=== PATIENT | male | born 1990 | race Caucasian/White ===

== ENCOUNTER 2019-04-06 07:24 | Emergency (ER) | payer MEDICAID ==
--- NOTE | 2019-04-06 08:03 | EDM.PDOC ---
ED HPI GENERAL MEDICAL PROBLEM - General Chief Complaint: Gastrointestinal Problem Stated Complaint: VOMITING SYNDROME Time Seen by Provider: 04/06/19 07:58 - History of Present Illness INITIAL COMMENTS - FREE TEXT/NARRATIVE: Patient has history of cyclic vomiting syndrome since age 12. Yesterday, day, he had a panic attack and his vomiting series began. He estimates he has vomited 15 times but it's mostly acid that comes up. He generally has responded well to IV fluids and antiemetics as well as something for anxiety. No fever or chills. No diarrhea. No abdominal pain. No urinary symptoms. Abdomen Pain Score (Numeric/FACES): 8 - Related Data Allergies Allergy/AdvReac Type Severity Reaction Status Date / Time No Known Allergies Allergy Verified 04/06/19 07:42 Home Meds: Home Meds QUEtiapine Fumarate [Quetiapine Fumarate] 25 mg PO ASDIRECTED 04/06/19 [History] Past Medical History Gastrointestinal History: Reports: Other (See Below) Psychiatric History: Reports: Anxiety Social & Family History - Tobacco Use Smoking Status *Q: Current Every Day Smoker Years of Tobacco use: 12 Packs/Tins Daily: 0.5 Used Tobacco, but Quit: No Second Hand Smoke Exposure: No - Caffeine Use Caffeine Use: Reports: Soda - Recreational Drug Use Recreational Drug Use: Yes Recreational Drug Type: Reports: Marijuana/Hashish Recreational Drug Use Frequency: Daily ED ROS GENERAL - Review of Systems Review Of Systems: See Below Constitutional: Reports: No Symptoms Respiratory: Reports: No Symptoms GI/Abdominal: Reports: Vomiting Psychiatric: Reports: Anxiety ED EXAM, GI/ABD - Physical Exam Exam: See Below Exam Limited By: Other (Retching) GI/Abdominal Exam: Normal Bowel Sounds, Soft, No Distention Psychiatric: Anxious Course - Vital Signs Last Recorded V/S: Last Vital Signs Temp 37.1 C 04/06/19 07:53 Pulse 73 04/06/19 07:53 Resp 17 04/06/19 07:53 BP 136/73 04/06/19 07:53 Pulse Ox 93 L 04/06/19 07:53 Departure - Departure Time of Disposition: 09:24 Disposition: Home, Self-Care 01 Condition: Good Clinical Impression: Vomiting, Anxiety - Discharge Information *PRESCRIPTION DRUG MONITORING PROGRAM REVIEWED*: Not Applicable *COPY OF PRESCRIPTION DRUG MONITORING REPORT IN PATIENT ALMITA: Not Applicable Referrals: PCP,None [Primary Care Provider] - Additional Instructions: Continue usual medications and cares. - Problem List & Annotations (1) Vomiting SNOMED Code(s): 882792030 Code(s): R11.10 - VOMITING, UNSPECIFIED Status: Acute Priority: Medium Current Visit: Yes Qualifiers: Vomiting type: cyclical vomiting Vomiting Intractability: non-intractable Nausea presence: without nausea Qualified Code(s): G43.A0 - Cyclical vomiting, not intractable (2) Anxiety SNOMED Code(s): 05261009 Code(s): F41.9 - ANXIETY DISORDER, UNSPECIFIED Status: Acute Priority: Medium Current Visit: Yes - Problem List Review Problem List Initiated/Reviewed/Updated: Yes - Assessment/Plan Assessment:: Anxiety and cyclic vomiting syndrome/acute episode.
[2019-04-06] MEDS ORDERED: Sodium Chloride 0.9% 10 ML Syringe FLUSH PRN (08:04)
[2019-04-06] MEDS ORDERED: Sodium Chloride 0.9% 1,000 ML IV ONE (08:04)
[2019-04-06] MEDS ORDERED: LORazepam 2 MG/ML SDV IVPUSH ONE (08:05)
[2019-04-06] MEDS ORDERED: diphenhydrAMINE 50 MG/ML SDV IVPUSH ONE (08:05)
[2019-04-06] MEDS ORDERED: Ondansetron 4 MG/2 ML SDV IVPUSH ONE (08:06)
== END 2019-04-06 09:33 | disposition home or self-care (01) ==
LOC: JP.ED 07:24
DX: G43.A0 Cyclical vomiting, in migraine, not intractable (principal); F41.9 Anxiety disorder, unspecified
CPT/HCPCS: 36415; 80048; 85025; 96361; 96374; 96375; 99284; J1200; J2060; J2405; J7030